=== PATIENT | female | born 1970 | race African-American/Black ===

== ENCOUNTER 2017-01-23 12:39 | Emergency (ER) | payer OTHER ==
[~2017-01-23] VITALS: Ht 167.6 cm; Wt 62.8 kg
[2017-01-23] MEDS ORDERED: SODIUM CHLORIDE 0.9% 1,000 ML IV ONE (13:25)
[2017-01-23] MEDS ORDERED: ACETAMINOPHEN 325MG TABLET PO ONE (13:30)
[2017-01-23 14:29] LABS: BASOPHILS % 0.7 % (0.0-2.0); EOSINOPHILS % 0.7 % (0.0-5.0); HEMATOCRIT. 37.6 % (36.0-48.0); HEMOGLOBIN. 12.6 g/dL (12.0-16.0); LYMPHOCYTES % 51.1 % (20.0-50.0); MEAN CORPUSCULAR HEMOGLOBIN 28.7 pg (28.0-32.0); MEAN CORPUSCULAR VOLUME 85.6 fL (81.0-99.0); MEAN PLATELET VOLUME 8.3 fl (7.4-10.4); MONOCYTES % 5.5 % (2.0-8.0); PLATELET 251 x1000/uL (130-400); RED BLOOD CELL COUNT 4.39 mill/uL (4.2-5.4); RED CELL DISTRIBUTION WIDTH 14.1 % (11.6-14.6)
[2017-01-23 14:42] LABS: CARBON DIOXIDE 30 mEq/L (21-32); CHLORIDE 104 mEq/L (98-107); CREATINE KINASE 84 IU/L (26-192); TROPONIN I < 0.02 ng/mL (0.00-0.04)
[2017-01-23 14:43] LABS: HCG SCREEN NEGATIVE
[2017-01-23] MEDS ORDERED: HYDROCODONE/ACETAMINOPHEN 5/325MG TABLET PO ONE (16:15)
[2017-01-23 17:24] VITALS: BP 123/75
== END 2017-01-23 17:26 | disposition home or self-care (01) ==
LOC: ER 12:39
DX: R55 Syncope and collapse (principal); R51 Headache; H53.8 Other visual disturbances; Z87.440 Personal history of urinary (tract) infections; Z88.6 Allergy status to analgesic agent
CPT/HCPCS: 36415; 70450; 80053; 82550; 84484; 84703; 85025; 93005; 99285; J7030

== ENCOUNTER 2017-12-09 14:01 | Emergency (ER) | payer OTHER ==
[~2017-12-09] VITALS: Ht 167.6 cm; Wt 65.0 kg
[2017-12-09] MEDS ORDERED: IBUPROFEN 800MG TABLET PO ONE (16:00)
[2017-12-09 16:10] VITALS: BP 132/80
== END 2017-12-09 16:52 | disposition home or self-care (01) ==
LOC: ER 14:21
DX: M79.672 Pain in left foot (principal); Z88.5 Allergy status to narcotic agent
CPT/HCPCS: 73630; 99284

== ENCOUNTER 2022-05-18 16:32 | Emergency (ER) | payer MEDICAID, OTHER ==
[~2022-05-18] VITALS: Ht 167.6 cm; Wt 88.0 kg
[2022-05-18 16:37] VITALS: BP 172/84
[2022-05-18] MEDS ORDERED: IBUPROFEN 400MG TABLET PO ONE (19:15)
[2022-05-18 19:45] LABS: CLARITY URINE CLEAR (CLEAR); COLOR URINE YELLOW (YELLOW); KETONES URINE TRACE (NEGATIVE); LEUKOCYTE ESTERASE URINE NEGATIVE (NEGATIVE); NITRITE URINE NEGATIVE (NEGATIVE); OCCULT BLOOD URINE 1+ (NEGATIVE); PROTEIN URINE NEGATIVE (NEGATIVE); SPECIFIC GRAVITY URINE 1.025 (1.005-1.030); UROBILINOGEN URINE 0.2 E.U./dL (0.2-1.0)
[2022-05-18 19:45] LABS: BASOPHILS % 1.1 % (0.0-2.0); EOSINOPHILS % 1.1 % (0.0-5.0); HEMATOCRIT. 38.4 % (36.0-48.0); HEMOGLOBIN. 12.9 g/dL (12.0-16.0); LYMPHOCYTES % 37.1 % (20.0-50.0); MEAN CORPUSCULAR VOLUME 83.5 fL (81.0-99.0); MEAN PLATELET VOLUME 7.9 fl (7.4-10.4); MONOCYTES % 6.6 % (2.0-8.0); NEUTROPHILS % 54.1 % (40.0-76.0); PLATELET 325 x1000/uL (130-400); RED BLOOD CELL COUNT 4.59 mill/uL (4.2-5.4)
[2022-05-18 19:51] LABS: CHLORIDE 103 mEq/L (98-107)
[2022-05-18 20:06] LABS: HCG SCREEN NEGATIVE
[2022-05-18] MEDS ORDERED: IBUP-2028 MT (21:58)
== END 2022-05-18 23:25 | disposition home or self-care (01) ==
LOC: ER 16:32
DX: R07.89 Other chest pain (principal); R10.30 Lower abdominal pain, unspecified; F17.200 Nicotine dependence, unspecified, uncomplicated; Z88.5 Allergy status to narcotic agent
CPT/HCPCS: 36415; 71045; 76700; 80053; 81003; 83880; 84484; 84703; 85025; 93005; 99285